=== PATIENT | male | born 1960 | race Caucasian/White ===

== ENCOUNTER 2021-02-11 15:19 | Inpatient (IN) | payer OTHER ==
[~2021-02-11] VITALS: Ht 167.6 cm; Wt 105.7 kg
--- NOTE | ~2021-02-11 | HC ---
[facility] [place] [address] CONSULTATION Name: JOE MCKENZIE Room #: 170-2 ADM IN M.R.#: [id number] Admission: 02/11/21 Attend Phys: Radames Garcia MD Discharge: Date of : 64 Report #: [id number] THIS REPORT FOR: cc: Mi Max,Lito Solorio MD ~ DATE OF SERVICE: 02/11/2021 HISTORY OF PRESENT ILLNESS: This is a 60-year-old male patient who was evaluated by me with complicated history. The patient says that he saw me 15 years ago. I do not remember that. His works with Dr. Max and she said this patient has some records and she is trying to get those records. Apparently, the patient was diagnosed with pseudotumor cerebri. I went back and looked at the records in [facility] as well as [facility]. This patient had workup as far as back at least 2009. As I understand from the , the patient was having some episode of syncope and he had some headache and he underwent an evaluation for pseudotumor cerebri. She said he had multiple spinal taps, but I can find only one, which was done in 2009 and that indicated an opening pressure of 23, which is only mildly high and I do not know how relax he was and that pressure was checked and the closing pressure was 10, which was actually somewhat lower than normal and that was only after draining 10 mL of the fluid as I understand. He had numerous imaging study of the brain. He had numerous MRI and he had 2 MRVs in the past and 1 CT angiogram of the head and neck. MRV has mentioned some asymmetry of the right transverse sinus, which they were not sure about the etiology. 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 CT angiogram did not comment upon the intracranial sinuses and I suspect they did not find any abnormality there. In any event, the patient saw numerous physicians including the one at [facility] and none of the records are here and they are all ____. He was doing fine and he was not on any medication for several years as I understand from the and then he developed COVID in April and since then, all his things has fallen apart according to the . He started having headache, but he had headache all his life. They called it migraine headache. He started having visual disturbances. I had talked to the double backer, he saw today and she had mentioned about the visual disturbances and I was concerned and I asked her to admit the patient, but the patient says this visual disturbances is going on somewhat in April at least for 2-3 months. He sometimes has good vision and sometime the vision becomes bad. REVIEW OF SYSTEMS: Also positive for multiple problems. He has trouble with depression. He had recurrent episode of syncope for which no cause has been found. His memory has become very poor and that is mostly since COVID. Today, he went to double backer's office and she found gross papilledema of the right eye. I might mention that the records indicate that this patient had MRI of the orbit in the past also and that was also with and without contrast and that was in 2010. 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 He does have a history of hypertension and it looks like his blood pressure was uncontrolled here and reviewing some of the records indicate that his blood pressure fluctuates and his blood pressure was high today in the Emergency Room. He apparently had a stent put in 2000. He has a history of hypertension, syncope and migraine and reviewing the record he also has been seen in the Emergency Room with the chest pain and shortness of breath. All other records are not available. He has a history of diverticulitis, bowel resection, hyperlipidemia, ear damage and recurrent rashes. He takes multiple medications for multiple problems including depression. PAST MEDICAL HISTORY: Positive for the diagnosis of pseudotumor cerebri and I am not sure how severe was it. FAMILY HISTORY: Unremarkable. SOCIAL HISTORY: He tells me that he does not smoke and he does not abuse alcohol. PHYSICAL EXAMINATION: His examination was pretty limited. He asked me to talk to his most of the time because he says he does not remember much. This is since the COVID, but he was able to tell me the month. He could not tell me the exact date. It took him some time to name the president, so his cognition does look affected. I did not dilate the fundus and looked at it because he has already been examined by double backer, but his cranial nerve examination does not appear to be showing any other abnormality. His strength, sensation and reflexes are symmetrical. He has no cerebellar sign. His fundus was already examined by double backer. Cardiac examination is unremarkable. His pulses are palpable. VITAL SIGNS: His blood pressure is 197/90, respirations 14, pulse is 72, temperature is 97.1. LABORATORY DATA: Indicated normal white count, normal platelet count and apparently he is not on any antithrombotic therapy, according to him. IMPRESSION: History of pseudotumor cerebri. He has been to numerous physicians. I do not have any of those records. The only record I have from the spinal tap of 2009, but he had multiple others. I think we need to address this question all over again. He had an MRI in December and he had contrast last year and I will just do the MRI of the brain and I will do an MRV and ask them to compare with the last MRV to see if there are any changes. As mentioned above, I do not think this patient had any symptoms for a long time until he developed COVID in April and during that time, I do not think he saw any [facility] [address] [place] [address] CONSULTATION Name: JOE MCKENZIE Room #: 170-2 ADM IN ..#: [id number] Admission: 02/11/21 Attend Phys: Radames Garcia MD Discharge: Date of : 64 Report #: [id number] neurologist and neuroophthalmologist for several years, but before that he saw, looks like all of them, although I do not have any records. The other possibility is that hypertensive encephalopathy. His blood pressure is high, but that will be treated and it has been high before also. Syncope is unusual with pseudotumor cerebri. After discussing all these options with the patient's , my recommendation was to repeat MRI and MRV in the morning and if that is negative, proceed with spinal tap by looking at the pressure. Symptoms are going on for much longer than I expected, but he is admitted and we will go ahead and do all the workup in the hospital and we will start him on Diamox. I discussed indication, potential complication, alternative and my plan with the patient and the patient's . I will schedule that and Dr. Acosta will follow up this patient with you from tomorrow. I discussed with them the plan of spinal tap and potential complication of spinal tap especially if the patient has increased pressure of herniation, even though all those complications are rare except for the headache, which can happen. If he does develop headache, then he will need a patch, but then we need to consider alternate diagnosis. It will be interesting to see if the patient's sinuses has changed any and if that has and especially because his papilledema on the right side, he may need aggressive management of intracranial sinus thrombosis if he has that. Thank you very much for allowing me to share in the management of this patient and Dr. Acosta will follow up this patient with you from tomorrow. By: [id number] Lito Mtz MD /nt
[~2021-02-11 15:19] MED LIST: ASPIRIN325 PO; ATORVASTATIN CA20 MG PO; CHLORTHALIDONE25 MG PO; CIPROFLOXACIN500 M1 PO; COZAAR 25 MG TA25 M1 PO; DESYREL100 MG PO; DIAMOX; DILTIAZEM 24HR120 M1 PO; FLAGYL500 MG PO; HYDROCHLOROTHIA25 M2 PO; IBUPROFEN 400400 M1 PO; INDERAL LA120 M1 PO; LEXAPRO 10 MG T10 MG PO; LINZESS145 MCG PO; LIPITOR 40 MG T40 M1 PO; LISINOPRIL10 MG PO; LISINOPRIL20 MG PO; LISINOPRIL5 MG PO; NIASPAN ER 101000 M1 PO; NORCO 5-325 TA1 EACH PO; NORCO 7.5-3251 EACH PO; PERCOCET 5-3251 EACH PO; PROZAC 20 MG20 M1 PO; PROZAC 20 MG20 MG PO; SIMCOR 500-201 EACH PO; TRAZODONE HCL100 MG PO; ZETIA10 MG PO; ZOFRAN ODT4 MG PO
[2021-02-11 15:23] VITALS: BP 197/90
[2021-02-11 16:17] LABS: ABSOLUTE NEUTROPHILS 2.2 thou/uL (1.4-8.2); BASOPHILS 1.1 % (0.0-2.0); EOSINOPHILS 11.7 % (0.0-3.0); HEMATOCRIT 40.4 % (42.0-52.0); HEMOGLOBIN 13.8 gm/dL (14.0-18.0); LYMPHOCYTES 32.1 % (24.0-44.0); MCH 30.4 pg (26.0-34.0); MCHC 34.2 g/dL (28.0-37.0); MCV 88.9 fL (80.0-100.0); PLATELET COUNT 183 thou/uL (150-400); POLYS 46.1 % (36.0-66.0); RBC 4.54 mil/uL (4.50-6.00); RDW 13.1 % (10.5-14.5); WBC 4.7 thou/uL (4.0-11.0)
[2021-02-11] MEDS ORDERED: PROPRANOLOL 20M20 M1 PO (16:18)
[2021-02-11] MEDS ORDERED: FLORINEF ACETA0.1 MG PO (16:18)
[2021-02-11] MEDS ORDERED: LISINOPRIL20 MG PO (16:19)
[2021-02-11] MEDS ORDERED: DESYREL150 MG PO (16:19)
[2021-02-11 16:35] LABS: PROTIME 10.2 Seconds (9.3-11.4)
[2021-02-11 16:40] LABS: CREATININE 1.4 mg/dL (0.7-1.3)
[2021-02-11 18:37] VITALS: BP 157/76
[2021-02-11 20:28] VITALS: BP 158/78
[2021-02-12 02:30] LABS: CREATININE 1.5 mg/dL (0.7-1.3); POTASSIUM 3.5 mmol/L (3.5-5.1)
[2021-02-12 02:32] LABS: HEMATOCRIT 38.6 % (42.0-52.0); HEMOGLOBIN 13.1 gm/dL (14.0-18.0); MCH 30.4 pg (26.0-34.0); MCHC 33.8 g/dL (28.0-37.0); MCV 89.9 fL (80.0-100.0); RBC 4.29 mil/uL (4.50-6.00); WBC 4.1 thou/uL (4.0-11.0)
[2021-02-12 08:39] VITALS: BP 155/84
[2021-02-12 10:43] LABS: CSF CLARITY CLEAR; CSF COLOR COLORLESS; VOLUME 12.5 ml
[2021-02-12 10:46] LABS: CSF GLUCOSE 55 mg/dL (40-70)
[2021-02-12 10:58] LABS: CSF RBC 0 /mm3; CSF WBC 2 /mm3 (0-10)
[2021-02-12] MEDS ORDERED: ACETAZOLAMIDE250 M1 PO (15:50)
[2021-02-12] MEDS ORDERED: ZOFRAN 4 MG ORAL4 MG PO (15:50)
[2021-02-12] MEDS ORDERED: CYANOCOBAL1000 MCG/1 SUBQ (15:50)
[2021-02-12 16:41] VITALS: BP 160/84
== END 2021-02-12 16:19 | disposition home or self-care (01) | DRG 103 ==
LOC: ER 15:19 → EROBS 17:23
PROVIDERS: Psychiatry & Neurology Neuromuscular Medicine; Student in an Organized Health Care Education/Training Program; ADMIT Hospitalist; ATTEND Hospitalist
PROC: 009U3ZX Drainage of Spinal Canal, Percutaneous Approach, Diagnostic (ICD-10-PCS; principal; 2021-02-12)
PROC: B01B1ZZ Fluoroscopy of Spinal Cord using Low Osmolar Contrast (ICD-10-PCS; principal; 2021-02-12)
DX: G93.2 Benign intracranial hypertension (principal); Z20.822 Contact with and (suspected) exposure to COVID-19; I10 Essential (primary) hypertension; F32.A Depression, unspecified; R55 Syncope and collapse; E53.8 Deficiency of other specified B group vitamins; H54.61 Unqualified visual loss, right eye, normal vision left eye; G43.919 Migraine, unspecified, intractable, without status migrainosus; E78.5 Hyperlipidemia, unspecified; Z90.49 Acquired absence of other specified parts of digestive tract; Z95.5 Presence of coronary angioplasty implant and graft; Z79.899 Other long term (current) drug therapy; Z79.82 Long term (current) use of aspirin